=== PATIENT | male | born 1950 | race Caucasian/White ===

== ENCOUNTER 2016-10-01 13:48 | Outpatient (CLI) | payer OTHER ==
[2014-09-29 19:17] VITALS: BP 124/85
== END 2016-10-01 13:50 ==
LOC: LAB 13:48
PROVIDERS: ATTEND Family Medicine
DX: I82.409 Acute embolism and thrombosis of unspecified deep veins of unspecified lower extremity (principal); Z79.01 Long term (current) use of anticoagulants
CPT/HCPCS: 36415; 85610

== ENCOUNTER 2017-01-26 09:10 | Outpatient (CLI) | payer MEDICARE, OTHER ==
[2014-09-29 19:17] VITALS: BP 124/85
[2017-01-26 10:04] LABS: eGFR (African) > 60; eGFR (Non-African) > 60
== END 2017-01-26 09:11 ==
LOC: LAB 09:10
PROVIDERS: ATTEND Family Medicine
DX: E11.9 Type 2 diabetes mellitus without complications (principal)
CPT/HCPCS: 36415; 80053; 80061; 82043; 83036

== ENCOUNTER 2018-04-09 20:28 | Emergency (ER) | payer MEDICARE, OTHER ==
[2018-04-09] MEDS ORDERED: INSULIN REGULAR, HUMAN 100 UNIT/ML 3ML VIAL IV ONE (20:42)
[2018-04-09] MEDS ORDERED: 0.9 % SODIUM CHLORIDE 1,000 ML IV ONE (20:42)
--- NOTE | 2018-04-09 21:00 | ED Physician Documentation ---
General Adult - HISTORIAN Historian: patient, spouse - HPI Stated Complaint: lightheaded Chief Complaint: General Adult Additional Information: Sat through [employer] in the heat and drank only a diet soda. Did not take his typical 8u Novolog before supper. Walked to bathroom at [employer], perhaps 50 feet. When he left, he felt light headed and saw stars. Was diaphoretic. Denies LOC. At time of exam, he says he feels fine, except that he occasionally sees a spot. Thirsty. FSG 499 in ER. Pulse ox in 80's on RA in ER. Describes 26 pound intentional weight loss since October. - ROS CONST: sweating - PAST HX Past History: other (RODOLFO PE's 3 years ago, on coumadin) Allergies/Adverse Reactions: Allergies Allergy/AdvReac Type Severity Reaction Status Date / Time No Known Allergies Allergy Verified 09/29/14 17:07 - SOCIAL HX Smoking History: non-smoker - FAMILY HX Family History: Yes (F with heart disease in 90's) - VITAL SIGNS Vital Signs: Vital Signs Temp Pulse Resp BP Pulse Ox 124/85 09/29/14 19:11 - REVIEWED ASSESSMENTS Nursing Assessment Reviewed: Yes Vitals Reviewed: Yes Progress - Progress Progress: 2145, pulse ox remained in 80's on RA. Placed on 5L/NC and carley to 94%. When weaned to 2L, pulse ox 88. Resp's in 20's and labored. HX rodolfo PE's, so chest CT , PE protocol ordered. 2232, phone call from Kyle Ch, radiologist: saddle PE with extension into both lower lobes, R>L, with pulmonary hypertension and right ventricular strain. Report Submission Date: Apr 09, 2018 10:30:43 PM CDT Patient Study Name: ADARSH PHILLIPS Date: Apr 09, 2018 10:09:25 PM CDT Modality Type: CT\SR Gender: M Description: CT CHEST W/ CONTRAST : 52 Institution: [facility] Physician: RENEE LA - ER CT chest with contrast Clinical history: Shortness of breath today. Rule out pulmonary embolus. Contrast administered: Omnipaque 300. Technique: CT pulmonary angiography is performed with intravenous administration of contrast. Sliding sagittal and coronal MIP reconstructions were performed by the technologist. Findings: Lungs are free of coalescent infiltrate. There is no pleural effusion or significant pleural thickening. There is elevation left hemidiaphragm. There are prominent bilateral pulmonary emboli with saddle embolus. Emboli are more extensive on the right than the left nearly filling the right lower lobe pulmonary artery. Main pulmonary artery is prominent consistent with pulmonary arterial hypertension. There is straightening of the interventricular septum consistent with right ventricular strain. Vascular calcification is present in the thoracic aorta with extension into the origins of the great vessels and coronary arteries. Impression: 1. Saddle embolus with emboli greater on the right. 2. Pulmonary arterial hypertension and right ventricular strain. 3. Critical results were phoned to the emergency room physician, Dr. La, at 2228 hr central time. Electronically signed on Apr 09, 2018 10:30:43 PM CDT by: Kyle Ch 337, spoke with [facility] at [facility], and they have no ICU or stepdown beds. Accepted for transfer to [facility] per Dr. Martins, Critical Care. ED Results Lab/Radiology - Orders Orders: ED Orders Category Date Time Status Continuous EKG monitoring Q1H Care 04/09/18 20:[address] IV Lock 1T Care 04/09/18 20:42 Active CHEST 1VIEW [RAD] Stat Exams 04/09/18 Ordered ACETONE Stat Lab 04/09/18 Ordered CBC/PLATELET/DIFF Routine Lab 04/09/18 Ordered CMP Routine Lab 04/09/18 Ordered GLYCOHEMOGLOBIN A1C with eAG Routine Lab 04/09/18 Ordered PT-INR Routine Lab 04/09/18 Ordered TROPONIN I (cTnI) Stat Lab 04/09/18 Ordered URINALYSIS Routine Lab 04/09/18 Ordered 0.9 % Sodium Chloride [Normal Saline] 1,000 ml Med 04/09/18 20:42 Active IV Q1H Insulin Regular, Human [Humulin R] Med 04/09/18 20:42 Discontinued 10 unit IV NOW ONE EKG WITH COMPARISON Stat Ther 04/09/18 Ordered General Adult Physical Exam - PHYSICAL EXAM GENERAL APPEARANCE: moderate distress EENT: eye inspection normal, ENT inspection normal, pharynx normal, no nystagmus NECK: normal inspection, supple RESPIRATORY: breath sounds normal, other (tachypneic at 20-22) CVS: reg rate & rhythm, heart sounds normal, no murmur ABDOMEN: soft, normal bowel sounds, no distension BACK: normal inspection, no CVA tenderness SKIN: normal color, diaphoresis EXTREMITIES: normal range of motion (gait and stance), no evidence of injury, no edema NEURO: CN's nml as tested, motor nml, sensation nml, cognition normal Discharge Clincal Impression: Pulmonary embolism on long-term anticoagulation therapy Referrals: Adarsh Jacobson MD [Primary Care Provider] - 2 Days Condition: Fair Disposition: 02 XFER SHT-TRM HOSP Decision to Admit: NO Decision Time: 22:41
[2018-04-09 21:36] LABS: BASOPHILS % 0.5 (0.0-1.5); EOSINOPHILS % 1.8 % (0.0-6.8); MEAN CORPUSCULAR HEMOGLOBIN 29.6 pg (28.0-34.0); MONOCYTES % 3.8 % (0.0-11.0); NEUTROPHILS # 6.5 # k/uL (1.4-7.7)
[2018-04-09 21:44] LABS: eGFR (African) > 60; eGFR (Non-African) > 60
--- NOTE | 2018-04-09 23:13 | Diagnostic Imaging Report ---
RENEE LA [facility] [address] [facility] [address] [place] [address]. [id number] Report Submission Date: Apr 09, 2018 9:55:29 PM CDT Patient Study Name: ADARSH PHILLIPS Date: Apr 09, 2018 9:19:54 PM CDT Modality Type: DX Gender: M Description: CHEST : 51 Institution: [facility] Physician: RENEE LA Portable chest Clinical history: Shortness of breath. Findings: Examination of the chest in AP portable view demonstrates elevation left hemidiaphragm with gaseous distention of the stomach. Lungs are clear. Cardiac silhouette is prominent and the aorta is atherosclerotic. Impression: 1. Elevated left hemidiaphragm. 2. Aortic atherosclerosis. Electronically signed on Apr 09, 2018 9:55:29 PM CDT by: Kyle GANNON
[2018-04-09 23:23] VITALS: BP 113/87
--- NOTE | 2018-04-10 00:34 | Diagnostic Imaging Report ---
[facility] [address] [facility] [address] Report Submission Date: Apr 09, 2018 10:30:43 PM CDT Patient Study Name: ADARSH PHILLIPS Date: Apr 09, 2018 10:09:25 PM CDT Modality Type: CT\SR Gender: M Description: CT CHEST W/ CONTRAST : 51 Institution: [facility] Physician: RENEE GAGNON CT chest with contrast Clinical history: Shortness of breath today. Rule out pulmonary embolus. Contrast administered: Omnipaque 300. Technique: CT pulmonary angiography is performed with intravenous administration of contrast. Sliding sagittal and coronal MIP reconstructions were performed by the technologist. Findings: Lungs are free of coalescent infiltrate. There is no pleural effusion or significant pleural thickening. There is elevation left hemidiaphragm. There are prominent bilateral pulmonary emboli with saddle embolus. Emboli are more extensive on the right than the left nearly filling the right lower lobe pulmonary artery. Main pulmonary artery is prominent consistent with pulmonary arterial hypertension. There is straightening of the interventricular septum consistent with right ventricular strain. Vascular calcification is present in the thoracic aorta with extension into the origins of the great vessels and coronary arteries. Impression: 1. Saddle embolus with emboli greater on the right. 2. Pulmonary arterial hypertension and right ventricular strain. 3. Critical results were phoned to the emergency room physician, Dr. Gagnon, at 2228 hr central time. Electronically signed on Apr 09, 2018 10:30:43 PM CDT by: Kyle GANNON
[2018-04-11 00:54] LABS: APPEARANCE,URINE CLEAR (CLEAR); COLOR,URINE YELLOW (YELLOW); OCCULT BLOOD,URINE TR (NEGATIVE); UROBILINOGEN URINE 0.2 Eu (0.2-1.0)
== END 2018-04-09 23:15 | disposition short-term general hospital (02) ==
LOC: ED 20:28
DX: I26.99 Other pulmonary embolism without acute cor pulmonale (principal); Z79.01 Long term (current) use of anticoagulants
CPT/HCPCS: 71045; 71260; 80053; 81002; 83036; 84484; 85025; 85610; 93005; G0480; J1815; J7030; 80320; 96365; 96375; 99285; Q9967; S1016